=== PATIENT | male | born 1985 | race Caucasian/White ===

== ENCOUNTER 2024-02-02 21:43 | Emergency (ER) | payer OTHER, SELFPAY ==
[2024-02-02 21:44] VITALS: BP 148/97; PULSE 118; RESP 20; TEMP 36.9; O2SAT 97; BMI 39.7; BMI 39.9
[2024-02-02 22:00] VITALS: BP 132/85; PULSE 113; RESP 20; O2SAT 97
[2024-02-02 22:08] LABS: Microscopic, Urine URINE MICROSCOPIC (MICROSCOPIC)
--- NOTE | 2024-02-02 22:09 | CT_ITS ---
PROCEDURE INFORMATION: Exam: CT Abdomen And Pelvis With Contrast Exam date and time: 02/02/2024 10:34 PM Age: 38 years old Clinical indication: Abdominal pain; Additional info: Right upper quadrant abdominal pain TECHNIQUE: Imaging protocol: Computed tomography of the abdomen and pelvis with contrast. Radiation optimization: All CT scans at this facility use at least one of these dose optimization techniques: automated exposure control; mA and/or kV adjustment per patient size (includes targeted exams where dose is matched to clinical indication); or iterative reconstruction. Contrast material: ISOVUE; Contrast volume: 75 ml; Contrast route: IV; COMPARISON: No relevant prior studies available. FINDINGS: Lungs: Small calcified granuloma in the posterior right lung base. Lung bases are otherwise clear. Heart: No cardiomegaly. No pericardial effusion. Liver: Hepatomegaly with diffuse hepatic steatosis. Gallbladder and bile ducts: Contracted gallbladder. No calcified stones. No ductal dilation. Pancreas: Normal pancreas. No ductal dilation. Spleen: Normal spleen. No splenomegaly. Adrenal glands: Adrenal glands are normal. Kidneys and ureters: No hydronephrosis or obstructing calculus. Bilateral punctate nonobstructive renal calculi. Stomach and bowel: No acute bowel abnormality. No obstruction. No mucosal thickening. Appendix: Appendix not seen. No definite evidence of appendicitis. Intraperitoneal space: Tiny mesenteric densities in the right lower quadrant. No free fluid or free air. Vasculature: No abdominal aortic aneurysm or dissection. Portal vein and mesenteric vessels appear grossly patent. Lymph nodes: No adenopathy. Urinary bladder: Normal urinary bladder. Reproductive: Normal prostate gland. Bones/joints: No acute osseous abnormality or evidence of osseous metastatic disease. Soft tissues: Unremarkable. IMPRESSION: 1. No acute findings. 2. Hepatomegaly with diffuse hepatic steatosis. 3. Bilateral punctate nonobstructive renal calculi. 4. Tiny mesenteric densities in the right lower quadrant. Suspect postoperative changes. Correlate with surgical history.
[2024-02-02 22:12] LABS: Basophils # 0.1 K/mm3 (0-0.2); Basophils % 0.9 % (0.1-2.0); Eosinophils # 0.4 K/mm3 (0.0-0.4); Eosinophils % 3.1 % (0.1-12.0); Hematocrit 51.1 % (42.0-52.0); Hemoglobin 16.8 g/dL (14.1-18.0); Lymphocytes # 2.7 K/mm3 (0.7-4.5); Lymphocytes % 22.1 % (10-50); Mean Corpuscular Hemoglobin 30.3 pg (27.0-31.2); Mean Corpuscular Volume 91.8 fl (80-94); Mean Platelet Volume 8.7 fl (7.4-10.4); Monocytes # 0.6 K/mm3 (0.1-1.0); Monocytes % 4.8 % (1.7-9.3); Neutrophils # 8.5 K/mm3 (1.8-7.8); Neutrophils % 69.1 % (37.0-80.0); Platelet Count 311 K/mm3 (142-424); Red Blood Count 5.56 M/mm3 (4.60-6.20); Red Cell Distribution Width 14.5 % (11.5-17.5); White Blood Count 12.3 K/mm3 (4.8-10.8)
[2024-02-02 22:13] LABS: Chloride 101 mmol/L (98-107); Sodium 141 mmol/L (136-145)
[2024-02-02 22:14] LABS: Potassium 3.5 mmoL/L (3.5-5.1)
--- NOTE | 2024-02-02 22:14 | ED_ITS ---
<Statement entered by Fransisco Corral MD - 02/02/24 23:02> I was consulted by the MARKUS, and we discussed the complexity of the problems being addressed. I approved the treatment and management plan for this patient's care in the emergency department, thus performing a substantive portion of the medical decision making. Fransisco Corral MD, KAYLAN, FACEP Discharge Plan Disposition Chief Complaint: Abdominal Pain Prescriptions Prescriptions: No Action atorvastatin 10 mg tablet 10 mg PO HS Patient Comments: TAKE 1 TABLET BY MOUTH ONCE DAILY AT BEDTIME metoprolol succinate 50 mg tablet extended release 24 hr 50 mg PO BID Patient Comments: TAKE 1 TABLET BY MOUTH TWICE DAILY glimepiride 2 mg tablet 2 mg PO DAILY Patient Comments: TAKE 1 TABLET BY MOUTH ONCE DAILY WITH MEALS amlodipine 10 mg tablet 10 mg PO DAILY Patient Comments: TAKE 1 TABLET BY MOUTH ONCE DAILY lisinopril-hydrochlorothiazide 20-25 mg tablet 1 tab PO BID Patient Comments: TAKE 1 TABLET BY MOUTH TWICE DAILY diclofenac sodium 75 mg tablet,delayed release (DR/EC) 75 mg PO BID Patient Comments: TAKE 1 TABLET BY MOUTH 2 TIMES A DAY ergocalciferol (vitamin D2) 1,250 mcg (50,000 unit) capsule 1,250 mcg PO WEEKLY Patient Comments: TAKE 1 CAPSULE BY MOUTH ONCE A WEEK febuxostat 40 mg tablet 40 mg PO DAILY Patient Comments: TAKE 1 TABLET BY MOUTH ONCE DAILY FOR GOUT Referrals Follow up/Referrals: Provider,MD Vito [Primary Care Provider] - See instructions Instructions Patient Instructions: DI for Acute Abdominal Pain Discharge ED Provider: Fransisco Corral General Adult HPI <NIMISHA Mueller - Last Filed: 02/02/24 22:59> General Chief complaint: Abdominal Pain Stated complaint: abd pain Time Seen by Provider: 02/02/24 21:46 Mode of Arrival: Ambulatory Source of Information: Patient Limitations: No Limitations Description of Symptoms (Recalled from ER Triage Doc. by RN): 38 M presents from home with 1 week of epigastric pain that radiates to his RUQ. He reports this started approximately 1 week ago. He was seen by his PCP who said, he has some liver tests that are off, but his gallbladder was fine. Patient states this patient has gotten worse and is sharp like a knife. The pain is worsened after eating or drinking. Denies vomiting, but reports waves of nausea. OTC meds are not working. History of Present Illness HPI narrative: Patient presents for evaluation of epigastric and right upper quadrant pain. Patient gives a history of several weeks of intermittent epigastric and right upper quadrant pain that is worse after food. Patient saw his PCP who ordered blood work and was told that his blood work was abnormal and that it could possibly be his liver or gallbladder. Patient currently rates his pain a 1-2 out of a scale of 0-10. He denies fever chills hemoptysis hematochezia melena nausea vomiting diarrhea. Related Data Home Medications Medication Instructions Recorded Confirmed amlodipine 10 mg tablet 10 mg PO DAILY 02/02/24 02/02/24 atorvastatin 10 mg tablet 10 mg PO HS 02/02/24 02/02/24 diclofenac sodium 75 mg 75 mg PO BID 02/02/24 02/02/24 tablet,delayed release ergocalciferol (vitamin D2) 1,250 1,250 mcg PO WEEKLY 02/02/24 02/02/24 mcg (50,000 unit) capsule febuxostat 40 mg tablet 40 mg PO DAILY 02/02/24 02/02/24 glimepiride 2 mg tablet 2 mg PO DAILY 02/02/24 02/02/24 lisinopril 20 1 tab PO BID 02/02/24 02/02/24 mg-hydrochlorothiazide 25 mg tablet metoprolol succinate 50 mg 50 mg PO BID 02/02/24 02/02/24 tablet,extended release 24 hr Allergies Allergy/AdvReac Type Severity Reaction Status Date / Time hydrocodone AdvReac Mild Gastrointestinal Verified 02/02/24 22:00 Upset [facility] <NIMISHA Mueller - Last Filed: 02/02/24 22:59> [facility] Disclaimer: The information contained in this section may have been updated after the patient was seen, as this information can be updated by other users. Medical History (Updated 02/02/24 @ 22:12 by Al Saldivar RN) Obesity Diabetes mellitus HTN (hypertension) Gout Surgical History (Updated 02/02/24 @ 22:12 by Al Saldivar RN) Hx of appendectomy Family History (Updated 02/02/24 @ 22:13 by Al Saldivar RN) Other No significant family history Social History (Updated 02/02/24 @ 22:13 by Al Saldivar RN) Smoking Status: Current some day smoker alcohol intake: never current occupational status: employed Travel in the last 8 weeks: None <NIMISHA Mueller - Last Filed: 02/02/24 22:59> ROS Obtained: Yes Systems reviewed as appropriate & no additional complaints except as documented Physical Exam <NIMISHA Mueller - Last Filed: 02/02/24 22:59> General General appearance: alert and in no apparent distress Head Head exam: atraumatic Eye Eye exam: Present normal appearance ENT ENT exam: Present normal exam and normal oropharynx Neck Neck exam: Present normal inspection and full ROM Chest Chest inspection: Present normal inspection Respiratory Respiratory exam: Present normal lung sounds bilaterally Cardiovascular Cardiovascular exam: Present regular rate and normal rhythm Abdominal Exam Abdominal exam: Present soft (Obese), tenderness (GastricPatient is tender to palpation in right upper quadrant with a positive Rivera sign), normal bowel sounds and Rivera's sign; Absent guarding or rigidity Extremities Exam Extremities exam: Present normal inspection and full ROM Back Exam Back exam: Present normal inspection and full ROM; Absent CVA tenderness (R) or CVA tenderness (L) Neurological Exam Neurological exam: Present alert and oriented X3 Psychiatric Psychiatric exam: Present normal affect Skin Skin exam: Present warm, dry and intact Medical Decision Making <NIMISHA Mueller - Last Filed: 02/02/24 22:59> Medical Records Medical records reviewed: Yes I reviewed the patient's medical records. Aries Inquiry Pt receiving controlled substance: No Vital Signs: 02/02/24 21:44 02/02/24 22:00 02/02/24 22:15 Temperature 98.4 F Temperature Source Oral Pulse Rate 113 H 109 H Pulse Rate [Left] 118 H Respiratory Rate 20 20 20 Blood Pressure 132/85 137/83 Blood Pressure [Right Arm] 148/97 H Blood Pressure Mean 93 Blood Pressure Mean [Right Arm] 114 Blood Pressure Source [Right Arm] Automatic Cuff Blood Pressure Position [Right Arm] Sitting 02 Sat by Pulse Oximetry 97 97 97 Oxygen Delivery Method Room Air Room Air Room Air Lab Data Lab results reviewed: Yes I reviewed the patient's lab results. Lab Results 02/02/24 21:50: WBC 12.3 H, RBC 5.56, Hgb 16.8, Hct 51.1, MCV 91.8, MCH 30.3, MCHC 33.0, RDW 14.5, Plt Count 311, MPV 8.7, Neut % (Auto) 69.1, Lymph % (Auto) 22.1, Baker % (Auto) 4.8, Eos % (Auto) 3.1, Baso % (Auto) 0.9, Neut # (Auto) 8.5 H, Lymph # (Auto) 2.7, Baker # (Auto) 0.6, Eos # (Auto) 0.4, Baso # (Auto) 0.1, PT 10.4, INR 0.96, Sodium 141, Potassium 3.5, Chloride 101, Carbon Dioxide 34 H, Anion Gap 9.5, BUN 22 H, Creatinine 1.00, Estimated Creat Clear 183, Estimated GFR 84, Est GFR ( Amer) 101, Glucose 187 H, Calcium 10.1, Total Bilirubin 0.5, AST 66 H, ALT 108 H, Alkaline Phosphatase 75, Total Protein 8.0, Albumin 4.6, Globulin 3.4 H, Albumin/Globulin Ratio 1.4, Lipase 85 02/02/24 21:56: Urine Color Yellow, Urine Appearance Clear, Urine pH 6.0, Ur Specific Roscoe 1.015, Urine Protein Negative, Urine Glucose (UA) 3+, Urine Ketones Trace, Urine Blood Negative, Urine Nitrate Negative, Urine Bilirubin Negative, Urine Urobilinogen 0.2, Ur Leukocyte Esterase Negative, Urine RBC None, Urine WBC None, Ur Squamous Epith Cells Occasional, Urine Bacteria None 02/02/24 21:50 02/02/24 21:50 Orders (Tests/Meds): ED MEDICATIONS Generic Name Dose Route Start Last Admin Trade Name Freq PRN Reason Stop Dose Admin Lactated Ringer's 1,000 mls @ 999 mls/hr 02/02/24 22:08 02/02/24 22:16 Lactated Ringer's 1000 Ml Bag IV 02/02/24 23:08 999 mls/hr .Q1H1M ONE Administration Sodium Chloride 10 ml 02/02/24 22:01 Sodium Chloride 0.9% 10ml Flush Syringe IV 03/03/24 22:00 NEEDED PRN Maintain IV Site Sodium Chloride 10 ml 02/02/24 22:39 02/02/24 22:40 Sodium Chloride 0.9% 10ml Syr (Rad Only) IV 03/03/24 22:38 10 ml NEEDED PRN Administration Maintain IV Site Discontinued Medications Generic Name Dose Route Start Last Admin Trade Name Micq PRN Reason Stop Dose Admin Acetaminophen 1,000 mg 02/02/24 22:08 02/02/24 22:16 Acetaminophen 1,000mg/100ml Vial IV 02/02/24 22:09 1,000 mg ONCE ONE Administration Belladonna Alkaloids 60 ml 02/02/24 22:21 02/02/24 22:22 Belladonna Alkaloids 60 Ml Ml PO 02/02/24 22:22 60 ml ONCE ONE Administration Iopamidol 75 ml 02/02/24 22:39 02/02/24 22:40 Iopamidol-370 (76%);100ml Bottle IV 02/02/24 22:40 75 ml ONCE ONE Administration Ketorolac Tromethamine 15 mg 02/02/24 22:08 02/02/24 22:16 Ketorolac 30mg/Ml Vial IV 02/02/24 22:09 15 mg ONCE ONE Administration ORDERS Category Date Time Status CT abdomen pelvis w con Stat Cat Scan 02/02/24 22:09 Taken POCUS Point of Care (ER Only) Stat Exams 02/02/24 22:17 Ordered Complete Blood Count Auto Diff Stat Lab 02/02/24 21:50 Completed Comprehensive Metabolic Panel Stat Lab 02/02/24 21:50 Completed INR [Prothrombin Time INR] Stat Lab 02/02/24 21:50 Completed Lipase Stat Lab 02/02/24 21:50 Completed Urinalysis and Microscopic Stat Lab 02/02/24 21:56 Completed Medical Decision Narrative: In summary patient is a 38-year-old obese male (BMI of 40) who presents to the emergency department for evaluation of abdominal pain. Patient is normotensive tachycardic upon arrival, afebrile. Physical exam is remarkable for tenderness to palpation with a positive Rivera sign in the right upper quadrant but no rebound guarding rigidity. Differential diagnosis includes pancreatitis ulcer hepatitis cholecystitis cholelithiasis. Initial workup will be conducted with hematologic labs [id number] ultrasound CT scan abdomen pelvis with contrast. Initial interventions include Tylenol Toradol IV fluid bolus GI cocktail. Initial workup reviewed by me showed slightly elevated white count left shift showed AST ALT elevation but normal bilirubin normal alk phos. Bedside echo was nondiagnostic unfortunately due to body habitus. Personally reviewed his CT scan of the abdomen pelvis which showed a small contracted gallbladder without any evidence of cholecystic fluid or stone. Upon repeat evaluation GI cocktail did improve his symptoms. At this point we are waiting full read from the radiologist and pending any changes will likely discharge with recommendations for [id number] Pepcid and referral to gastroenterology. This time care is turned over to Dr. Gaines at 2300 hrs. <Fransisco Corral MD - Last Filed: 02/02/24 22:25> Vital Signs: 02/02/24 21:44 02/02/24 22:00 02/02/24 22:15 Temperature 98.4 F Temperature Source Oral Pulse Rate 113 H 109 H Pulse Rate [Left] 118 H Respiratory Rate 20 20 20 Blood Pressure 132/85 137/83 Blood Pressure [Right Arm] 148/97 H Blood Pressure Mean 93 Blood Pressure Mean [Right Arm] 114 Blood Pressure Source [Right Arm] Automatic Cuff Blood Pressure Position [Right Arm] Sitting 02 Sat by Pulse Oximetry 97 97 97 Oxygen Delivery Method Room Air Room Air Room Air Lab Data Lab Results 02/02/24 21:50: WBC 12.3 H, RBC 5.56, Hgb 16.8, Hct 51.1, MCV 91.8, MCH 30.3, MCHC 33.0, RDW 14.5, Plt Count 311, MPV 8.7, Neut % (Auto) 69.1, Lymph % (Auto) 22.1, Baker % (Auto) 4.8, Eos % (Auto) 3.1, Baso % (Auto) 0.9, Neut # (Auto) 8.5 H, Lymph # (Auto) 2.7, Baker # (Auto) 0.6, Eos # (Auto) 0.4, Baso # (Auto) 0.1, PT 10.4, INR 0.96, Sodium 141, Potassium 3.5, Chloride 101, Carbon Dioxide 34 H, Anion Gap 9.5, BUN 22 H, Creatinine 1.00, Estimated Creat Clear 183, Estimated GFR 84, Est GFR ( Amer) 101, Glucose 187 H, Calcium 10.1, Total Bilirubin 0.5, AST 66 H, ALT 108 H, Alkaline Phosphatase 75, Total Protein 8.0, Albumin 4.6, Globulin 3.4 H, Albumin/Globulin Ratio 1.4, Lipase 85 02/02/24 21:56: Urine Color Yellow, Urine Appearance Clear, Urine pH 6.0, Ur Specific Roscoe 1.015, Urine Protein Negative, Urine Glucose (UA) 3+, Urine Ketones Trace, Urine Blood Negative, Urine Nitrate Negative, Urine Bilirubin Negative, Urine Urobilinogen 0.2, Ur Leukocyte Esterase Negative, Urine RBC None, Urine WBC None, Ur Squamous Epith Cells Occasional, Urine Bacteria None Orders (Tests/Meds): ED MEDICATIONS Generic Name Dose Route Start Last Admin Trade Name Freq PRN Reason Stop Dose Admin Lactated Ringer's 1,000 mls @ 999 mls/hr 02/02/24 22:08 02/02/24 22:16 Lactated Ringer's 1000 Ml Bag IV 02/02/24 23:08 999 mls/hr .Q1H1M ONE Administration Sodium Chloride 10 ml 02/02/24 22:01 Sodium Chloride 0.9% 10ml Flush Syringe IV 03/03/24 22:00 NEEDED PRN Maintain IV Site Sodium Chloride 10 ml 02/02/24 22:39 02/02/24 22:40 Sodium Chloride 0.9% 10ml Syr (Rad Only) IV 03/03/24 22:38 10 ml NEEDED PRN Administration Maintain IV Site Discontinued Medications Generic Name Dose Route Start Last Admin Trade Name Freq PRN Reason Stop Dose Admin Acetaminophen 1,000 mg 02/02/24 22:08 02/02/24 22:16 Acetaminophen 1,000mg/100ml Vial IV 02/02/24 22:09 1,000 mg ONCE ONE Administration Belladonna Alkaloids 60 ml 02/02/24 22:21 02/02/24 22:22 Belladonna Alkaloids 60 Ml Ml PO 02/02/24 22:22 60 ml ONCE ONE Administration Iopamidol 75 ml 02/02/24 22:39 02/02/24 22:40 Iopamidol-370 (76%);100ml Bottle IV 02/02/24 22:40 75 ml ONCE ONE Administration Ketorolac Tromethamine 15 mg 02/02/24 22:08 02/02/24 22:16 Ketorolac 30mg/Ml Vial IV 02/02/24 22:09 15 mg ONCE ONE Administration ORDERS Category Date Time Status CT abdomen pelvis w con Stat Cat Scan 02/02/24 22:09 Taken POCUS Point of Care (ER Only) Stat Exams 02/02/24 22:17 Ordered Complete Blood Count Auto Diff Stat Lab 02/02/24 21:50 Completed Comprehensive Metabolic Panel Stat Lab 02/02/24 21:50 Completed INR [Prothrombin Time INR] Stat Lab 02/02/24 21:50 Completed Lipase Stat Lab 02/02/24 21:50 Completed Urinalysis and Microscopic Stat Lab 02/02/24 21:56 Completed Procedures <Fransisco Corral MD - Last Filed: 02/02/24 22:25> Miscellaneous Procedure Procedure Performed: Limited RUQ ultrasound Indication: Right quadrant abdominal pain Identified structures: -Gallbladder -Gallbladder wall -Common bile duct -Liver Findings: Patient's body habitus severely limited exam and the above structures were not able to be adequately visualized Impression: Equivocal right upper quadrant ultrasound given patient's body habitus Images are saved to permanent archive The study was not technically adequate CPT 36100-44 This study was performed by me, and I personally interpreted all images/videos. Based on my clinical judgement, these images were inadequate and did necessitate further imaging. Critical Care <NIMISHA Mueller - Last Filed: 02/02/24 22:59> Critical Care Time Critical Care Time: No
[2024-02-02 22:15] VITALS: BP 137/83; PULSE 109; RESP 20; O2SAT 97
[2024-02-02 22:15] LABS: Appearance,Urine CLEAR (Clear); Bilirubin,Urine Negative (Negative); Blood, Urine Negative (Negative); Color,Urine YELLOW (Yellow); Glucose,Urine (UA) 3+ (Negative); Ketones,Urine TRACE (Negative); Leukocyte Esterase,Urine Negative (Negative); Nitrate,Urine Negative (Negative); Protein,Urine Negative (Negative); Specific Gravity, Urine 1.015 (1.005-1.030); Urobilinogen,Urine 0.2 EU/dl (0.2)
[2024-02-02 22:16] LABS: Alanine Aminotransferase 108 U/L (12-78); Albumin Level 4.6 g/dl (3.5-5.0); Albumin/Globulin Ratio 1.4 (1.1-1.8); Alkaline Phosphatase 75 U/L (38-126); Anion Gap 9.5 mEq/L (5-15); Aspartate Amino Transferase 66 U/L (17-59); Bilirubin,Total 0.5 mg/dl (0.2-1.3); Blood Urea Nitrogen 22 mg/dl (9-20); Carbon Dioxide 34 mmol/L (22.0-30.0); Creatinine Clearance Estimated 183 mL/min (50-200); Estimated Glomerular Filt Rate 84 ml/min (>60); GFR (African American) 101 ML/MIN (>60); Globulin 3.4 g/dL (1.3-3.2)
[2024-02-02] MEDS: LACTATED RINGERS 1000ML 1,000 ML 999 ML IV (22:16)
[2024-02-02] MEDS: KETOROLAC 30MG/ML VIAL 15 MG IV (22:16)
[2024-02-02] MEDS: ACETAMINOPHEN 1,000MG/100ML VIAL 1000 MG IV (22:16)
[2024-02-02 22:17] LABS: Calcium 10.1 mg/dl (8.4-10.2); Glucose 187 mg/dl (74-100)
[2024-02-02 22:21] LABS: Lipase 85 U/L (23-300)
[2024-02-02] MEDS: BELLADONNA ALKALOIDS 60 ML ML PO (22:22)
[2024-02-02 22:25] LABS: INR 0.96 (0.9-1.1); Prothrombin Time 10.4 seconds (10.1-12.5)
[2024-02-02 22:27] LABS: Squamous Epithelial Cell,Urine Occasional #/hpf (0-5)
[2024-02-02] MEDS: SODIUM CHLORIDE 0.9% 10ML SYR (RAD ONLY) 10 ML IV (22:40)
[2024-02-02] MEDS: IOPAMIDOL-370 (76%);100ML BOTTLE 75 ML IV (22:40)
[2024-02-02 23:33] VITALS: BP 119/75; PULSE 82; RESP 15; TEMP 36.8; O2SAT 94
--- NOTE | 2024-02-03 14:49 | [facility].EDGENADL ---
Discharge Plan Disposition Patient Disposition: Home, Self-Care Condition: Good Prescriptions Prescriptions: New famotidine 20 mg tablet 20 mg PO BID 42 Days Qty: 84 0RF No Action atorvastatin 10 mg tablet 10 mg PO HS Patient Comments: TAKE 1 TABLET BY MOUTH ONCE DAILY AT BEDTIME metoprolol succinate 50 mg tablet extended release 24 hr 50 mg PO BID Patient Comments: TAKE 1 TABLET BY MOUTH TWICE DAILY glimepiride 2 mg tablet 2 mg PO DAILY Patient Comments: TAKE 1 TABLET BY MOUTH ONCE DAILY WITH MEALS amlodipine 10 mg tablet 10 mg PO DAILY Patient Comments: TAKE 1 TABLET BY MOUTH ONCE DAILY lisinopril-hydrochlorothiazide 20-25 mg tablet 1 tab PO BID Patient Comments: TAKE 1 TABLET BY MOUTH TWICE DAILY diclofenac sodium 75 mg tablet,delayed release (DR/EC) 75 mg PO BID Patient Comments: TAKE 1 TABLET BY MOUTH 2 TIMES A DAY ergocalciferol (vitamin D2) 1,250 mcg (50,000 unit) capsule 1,250 mcg PO WEEKLY Patient Comments: TAKE 1 CAPSULE BY MOUTH ONCE A WEEK febuxostat 40 mg tablet 40 mg PO DAILY Patient Comments: TAKE 1 TABLET BY MOUTH ONCE DAILY FOR GOUT Referrals Follow up/Referrals: Provider,Referral, MD [Referring] - See instructions Activity Restrictions/Add. Instructions Additional Instructions/Restrictions: Please follow-up with your primary care provider. Recommend establishing care with GI. Dr. Shanika Sharif with [facility] is accepting new patients. Call [phone] to schedule and appt. Please return to the emergency department if you develop any new or worsening symptoms or become concerned for your health. A prescription for pepcid has been sent. Clinical Impressions Clinical Impression: Elevated liver enzymes, Abdominal pain Instructions Patient Instructions: DI for Acute Abdominal Pain Discharge ED Provider: Fransisco Corral General Adult HPI General Chief complaint: Abdominal Pain Stated complaint: abd pain Time Seen by Provider: 02/02/24 21:46 Mode of Arrival: Ambulatory Source of Information: Patient Limitations: No Limitations Description of Symptoms (Recalled from ER Triage Doc. by RN): 38 M presents from home with 1 week of epigastric pain that radiates to his RUQ. He reports this started approximately 1 week ago. He was seen by his PCP who said, he has some liver tests that are off, but his gallbladder was fine. Patient states this patient has gotten worse and is sharp like a knife. The pain is worsened after eating or drinking. Denies vomiting, but reports waves of nausea. OTC meds are not working. Related Data Home Medications Medication Instructions Recorded Confirmed amlodipine 10 mg tablet 10 mg PO DAILY 02/02/24 02/02/24 atorvastatin 10 mg tablet 10 mg PO HS 02/02/24 02/02/24 diclofenac sodium 75 mg 75 mg PO BID 02/02/24 02/02/24 tablet,delayed release ergocalciferol (vitamin D2) 1,250 1,250 mcg PO WEEKLY 02/02/24 02/02/24 mcg (50,000 unit) capsule febuxostat 40 mg tablet 40 mg PO DAILY 02/02/24 02/02/24 glimepiride 2 mg tablet 2 mg PO DAILY 02/02/24 02/02/24 lisinopril 20 1 tab PO BID 02/02/24 02/02/24 mg-hydrochlorothiazide 25 mg tablet metoprolol succinate 50 mg 50 mg PO BID 02/02/24 02/02/24 tablet,extended release 24 hr Previous Rx's Medication Instructions Recorded famotidine 20 mg tablet 20 mg PO BID 6 weeks #84 tabs 02/02/24 Allergies Allergy/AdvReac Type Severity Reaction Status Date / Time hydrocodone AdvReac Mild Gastrointestinal Verified 02/02/24 22:00 Upset [facility] Disclaimer: The information contained in this section may have been updated after the patient was seen, as this information can be updated by other users. Medical History (Updated 02/02/24 @ 23:29 by Nomi Gaines MD) Obesity Diabetes mellitus HTN (hypertension) Gout Surgical History (Updated 02/02/24 @ 22:12 by Al Saldivar RN) Hx of appendectomy Family History (Updated 02/02/24 @ 22:13 by Al Saldivar RN) Other No significant family history Social History (Updated 02/02/24 @ 22:13 by Al Saldivar RN) Smoking Status: Current some day smoker alcohol intake: never current occupational status: employed Travel in the last 8 weeks: None ROS Obtained: Yes Systems reviewed as appropriate & no additional complaints except as documented Physical Exam General General appearance: alert and in no apparent distress Respiratory Respiratory exam: Present normal lung sounds bilaterally; Absent respiratory distress Cardiovascular Cardiovascular exam: Present regular rate and normal rhythm Neurological Exam Neurological exam: Present alert Medical Decision Making Medical Records Medical records reviewed: Yes I reviewed the patient's medical records. Aries Inquiry Pt receiving controlled substance: No Vital Signs: 02/02/24 21:44 02/02/24 22:00 02/02/24 22:15 Temperature 98.4 F Temperature Source Oral Pulse Rate 113 H 109 H Pulse Rate [Left] 118 H Respiratory Rate 20 20 20 Blood Pressure 132/85 137/83 Blood Pressure [Right Arm] 148/97 H Blood Pressure Mean 93 Blood Pressure Mean [Right Arm] 114 Blood Pressure Source Blood Pressure Source [Right Arm] Automatic Cuff Blood Pressure Position Blood Pressure Position [Right Arm] Sitting 02 Sat by Pulse Oximetry 97 97 97 Oxygen Delivery Method Room Air Room Air Room Air 02/02/24 23:33 Temperature 98.3 F Temperature Source Oral Pulse Rate 82 Pulse Rate [Left] Respiratory Rate 15 Blood Pressure 119/75 Blood Pressure [Right Arm] Blood Pressure Mean Blood Pressure Mean [Right Arm] Blood Pressure Source Automatic Cuff Blood Pressure Source [Right Arm] Blood Pressure Position Sitting Blood Pressure Position [Right Arm] 02 Sat by Pulse Oximetry Oxygen Delivery Method Room Air Lab Data Lab results reviewed: Yes I reviewed the patient's lab results. Lab Results 02/02/24 21:50: WBC 12.3 H, RBC 5.56, Hgb 16.8, Hct 51.1, MCV 91.8, MCH 30.3, MCHC 33.0, RDW 14.5, Plt Count 311, MPV 8.7, Neut % (Auto) 69.1, Lymph % (Auto) 22.1, [place] % (Auto) 4.8, Eos % (Auto) 3.1, Baso % (Auto) 0.9, Neut # (Auto) 8.5 H, Lymph # (Auto) 2.7, [place] # (Auto) 0.6, Eos # (Auto) 0.4, Baso # (Auto) 0.1, PT 10.4, INR 0.96, Sodium 141, Potassium 3.5, Chloride 101, Carbon Dioxide 34 H, Anion Gap 9.5, BUN 22 H, Creatinine 1.00, Estimated Creat Clear 183, Estimated GFR 84, Est GFR ( Amer) 101, Glucose 187 H, Calcium 10.1, Total Bilirubin 0.5, AST 66 H, ALT 108 H, Alkaline Phosphatase 75, Total Protein 8.0, Albumin 4.6, Globulin 3.4 H, Albumin/Globulin Ratio 1.4, Lipase 85 02/02/24 21:56: Urine Color Yellow, Urine Appearance Clear, Urine pH 6.0, Ur Specific [place] 1.015, Urine Protein Negative, Urine Glucose (UA) 3+, Urine Ketones Trace, Urine Blood Negative, Urine Nitrate Negative, Urine Bilirubin Negative, Urine Urobilinogen 0.2, Ur Leukocyte Esterase Negative, Urine RBC None, Urine WBC None, Ur Squamous Epith Cells Occasional, Urine Bacteria None 02/02/24 21:50 02/02/24 21:50 Orders (Tests/Meds): ED MEDICATIONS Discontinued Medications Generic Name Dose Route Start Last Admin Trade Name Freq PRN Reason Stop Dose Admin Acetaminophen 1,000 mg 02/02/24 22:08 02/02/24 22:16 Acetaminophen 1,000mg/100ml Vial IV 02/02/24 22:09 1,000 mg ONCE ONE Administration Belladonna Alkaloids 60 ml 02/02/24 22:21 02/02/24 22:22 Belladonna Alkaloids 60 Ml Ml PO 02/02/24 22:22 60 ml ONCE ONE Administration Lactated Ringer's 1,000 mls @ 999 mls/hr 02/02/24 22:08 02/02/24 22:16 Lactated Ringer's 1000 Ml Bag IV 02/02/24 23:08 999 mls/hr .Q1H1M ONE Administration Iopamidol 75 ml 02/02/24 22:39 02/02/24 22:40 Iopamidol-370 (76%);100ml Bottle IV 02/02/24 22:40 75 ml ONCE ONE Administration Ketorolac Tromethamine 15 mg 02/02/24 22:08 02/02/24 22:16 Ketorolac 30mg/Ml Vial IV 02/02/24 22:09 15 mg ONCE ONE Administration Sodium Chloride 10 ml 02/02/24 22:01 Sodium Chloride 0.9% 10ml Flush Syringe IV 03/03/24 22:00 NEEDED PRN Maintain IV Site Sodium Chloride 10 ml 02/02/24 22:39 02/02/24 22:40 Sodium Chloride 0.9% 10ml Syr (Rad Only) IV 03/03/24 22:38 10 ml NEEDED PRN Administration Maintain IV Site ORDERS Category Date Time Status CT abdomen pelvis w con Stat Cat Scan 02/02/24 22:09 Completed POCUS Point of Care (ER Only) Stat Exams 02/02/24 22:17 Taken Complete Blood Count Auto Diff Stat Lab 02/02/24 21:50 Completed Comprehensive Metabolic Panel Stat Lab 02/02/24 21:50 Completed INR [Prothrombin Time INR] Stat Lab 02/02/24 21:50 Completed Lipase Stat Lab 02/02/24 21:50 Completed Urinalysis and Microscopic Stat Lab 02/02/24 21:56 Completed Critical Care Critical Care Time Critical Care Time: No
== END 2024-02-02 23:34 | disposition home or self-care (01) ==
PROVIDERS: Physician Assistant; Emergency Provider Student in an Organized Health Care Education/Training Program; PCP Clinical Nurse Specialist Adult Health
DX: R10.13 Epigastric pain (principal); R10.11 Right upper quadrant pain; E11.9 Type 2 diabetes mellitus without complications; I10 Essential (primary) hypertension; M10.9 Gout, unspecified; F17.200 Nicotine dependence, unspecified, uncomplicated
CPT/HCPCS: 74177; 80053; 81001; 83690; 85025; 85610; 96361; 96374; 96375; 99285; J0131; Q9967